=== PATIENT | female | born 1960 | race African-American/Black ===

== ENCOUNTER 2020-10-30 15:27 | Emergency (ER) | payer MEDICAID, OTHER ==
[~2020-10-30] VITALS: Ht 162.6 cm; Wt 59.0 kg
--- NOTE | 2020-10-30 16:13 | NUR ---
Patient discharged to home in stable condition. Written and verbal after care instructions given. Patient verbalizes understanding of instructions. Stressed follow up or return to ER for worsening s/s.
== END 2020-10-30 16:13 | disposition home or self-care (01) ==
LOC: ER 15:27
DX: H93.13 Tinnitus, bilateral (principal); Z88.0 Allergy status to penicillin; F41.9 Anxiety disorder, unspecified
CPT/HCPCS: A4663

== ENCOUNTER 2023-05-01 17:36 | Emergency (ER) | payer MEDICAID ==
[~2023-05-01] VITALS: Ht 162.6 cm; Wt 53.5 kg
[~2023-05-01 17:36] MED LIST: ALPR0.5T8 PO; AMLO10TA59 PO; CLON0.1T PO; LISI1TAB55 PO
[2023-05-01 19:21] LABS: BASOPHILS # (AUTO) 0.1 K/UL (0.0-0.2); BASOPHILS % (AUTO) 0.8 % (0.0-2.0); EOSINOPHILS % (AUTO) 0.1 % (0.0-7.0); HEMATOCRIT 32.3 % (31.2-41.9); HEMOGLOBIN 11.2 g/dL (10.9-14.3); LYMPHOCYTES # (AUTO) 1.4 K/uL (0.8-4.8); LYMPHOCYTES % (AUTO) 17.2 % (20.5-51.5); MEAN CORPUSCULAR HEMOGLOBIN 32.9 uug (24.7-32.8); MEAN CORPUSCULAR HGB CONC 35 g/dL (32.3-35.6); MEAN CORPUSCULAR VOLUME 94.9 fL (75.5-95.3); MONOCYTES # (AUTO) 0.5 K/uL (0.1-1.30); MONOCYTES % (AUTO) 6.5 % (0.0-11.0); NEUTROPHILS # (AUTO) 6.3 K/uL (1.8-8.9); NEUTROPHILS % (AUTO) 75.4 % (38.5-71.5); PLATELET COUNT (AUTO) 488 K/uL (179-408); RED CELL DISTRIBUTION WIDTH 12.5 % (12.3-17.7); WHITE BLOOD COUNT (AUTO) 8.3 K/uL (3.8-11.8)
[2023-05-01 19:29] LABS: DIFFERENTIAL COMMENT 1
[2023-05-01 19:32] LABS: ERYTHROCYTE SEDIMENTATION RATE 17 MM/HR (0-20)
[2023-05-01 19:36] LABS: CALCIUM 10.7 mg/dL (8.5-10.1); CREATININE 0.9 mg/dL (0.6-1.3); POTASSIUM 3.5 mmol/L (3.5-5.1)
[2023-05-01 19:52] LABS: ALBUMIN 4.6 g/dL (3.4-5.0); BILIRUBIN,TOTAL 0.6 mg/dL (0.2-1.0)
[2023-05-01 19:54] LABS: *BILIRUBIN,URIN NEGATIVE (NEGATIVE); *CLARITY,URINE CLEAR (CLEAR); *COLOR,URINE YELLOW (YELLOW); *KETONES,URINE NEGATIVE (NEGATIVE); *PROTEIN,URINE NEGATIVE (NEGATIVE); *UROBILINOGEN,URINE 0.2 E.U./dl (NORMAL); LEUKOCYTE ESTERASE ,URINE 1+ (NEGATIVE); NITRITE, URINE NEGATIVE (NEGATIVE); PH,URINE 5.5 (5.0-8.0); UGLUCOSE NEGATIVE (NEGATIVE)
[2023-05-01 19:55] LABS: *BLOOD, URINE TRACE (NEGATIVE)
[2023-05-01 20:11] LABS: RBC,URINE 0-3 /HPF (0-3)
[2023-05-01 20:12] LABS: BACTERIA,URINE FEW /HPF (NONE SEEN); SQUAMOUS EPITHELIAL CELL,UR MODERATE /HPF (NONE SEEN)
[2023-05-01] MEDS ORDERED: GABA300T25 PO (21:45)
[2023-05-01 21:55] VITALS: BP 136/80; O2SAT 98
== END 2023-05-01 21:56 | disposition home or self-care (01) ==
LOC: ER 17:36
DX: R51.9 Headache, unspecified (principal); F41.9 Anxiety disorder, unspecified; Z79.899 Other long term (current) drug therapy; Z60.2 Problems related to living alone; Z88.0 Allergy status to penicillin
CPT/HCPCS: 36415; 70450; 83605; 85025; 85651; A4606; A4663